=== PATIENT | female | born 1955 | race Caucasian/White ===

== ENCOUNTER 2017-02-27 06:58 | Day surgery (SDC) | payer MEDICAID ==
[2017-02-27] MEDS ORDERED: Sodium Chloride 0.9% 1,000 ML IV SCH (07:30)
[2017-02-27] MEDS ORDERED: fentaNYL 100 MCG/2 ML SDV ONE (08:07)
[2017-02-27] MEDS ORDERED: Midazolam 1 MG/ML 2 ML SDV ONE (08:08)
[2017-02-27] MEDS ORDERED: Propofol 200 MG/20 ML SDV ONE (08:08)
[2017-02-27 09:43] VITALS: BP 122/73
--- NOTE | 2017-02-27 13:09 | OR ---
DATE OF PROCEDURE: 02/27/2017 PROCEDURE: Colonoscopy. FINDINGS: 1. Mild inflammation of the cecum in proximity to ileocecal valve (biopsied using cold biopsy forceps). 2. Sigmoid colon polyp #1, approximately 8 mm polyp, completely removed using hot snare. 3. Sigmoid colon polyp #2, completely removed using cold biopsy forceps. 4. Rectal polyp #1, completely removed using cold biopsy forceps. COMPLICATIONS: None. SPORTS MANAGEMENT INTERNSHIP: None. PREOPERATIVE DIAGNOSIS: History of colon polyps. POSTOPERATIVE DIAGNOSIS: History of colon polyps. RISKS: Risks, benefits, alternatives, and limitations including, but not limited to infection, bleeding, and perforation were explained to the patient, who wished to proceed. PROCEDURE IN DETAIL: The patient was placed in left lateral decubitus position. Digital rectal exam was performed without abnormality. The scope was introduced and advanced atraumatically to the ileocecal valve. The scope was brought back to the ascending, transverse, descending colon, and retroflexed. The aforementioned polyps were all completely removed in the procedure described. No evidence of old or new blood. No diverticulosis. No abnormalities on retroflex. The patient did have small external hemorrhoid, which was benign in appearance. The patient tolerated the procedure well. Ryland Stephen MD /[id number]
== END 2017-02-27 09:57 | disposition home or self-care (01) ==
LOC: JP.SDS 06:58
PROVIDERS: ATTEND Surgery
DX: Z12.11 Encounter for screening for malignant neoplasm of colon (principal); D12.5 Benign neoplasm of sigmoid colon; D12.0 Benign neoplasm of cecum; K63.5 Polyp of colon; K62.1 Rectal polyp; Z86.010 Personal history of colon polyps; K64.4 Residual hemorrhoidal skin tags; I10 Essential (primary) hypertension; Z88.1 Allergy status to other antibiotic agents; Z88.8 Allergy status to other drugs, medicaments and biological substances; F17.200 Nicotine dependence, unspecified, uncomplicated
CPT/HCPCS: 45380; 45385; J2250; J2704; J3010; J7040; 88305

== ENCOUNTER 2018-01-26 07:34 | Inpatient (IN) | payer MEDICAID ==
[~2018-01-26 07:34] MED LIST: Midazolam 1 MG/ML 2 ML SDV ONE; Propofol 200 MG/20 ML SDV ONE; fentaNYL 100 MCG/2 ML SDV ONE
[2018-01-26] MEDS ORDERED: Acetaminophen 500 MG Tab PO ONE (08:00)
[2018-01-26] MEDS ORDERED: Scopolamine 1.5 MG Transdermal Patch TOP SCH (08:00)
[2018-01-26] MEDS ORDERED: Lactated Ringers 1,000 ML IV SCH ×2 (08:00→11:30)
[2018-01-26] MEDS ORDERED: Gabapentin 300 MG Cap PO ONE (08:00)
[2018-01-26] MEDS ORDERED: Gentamicin 40 MG/ML 2 ML Vial ONE (08:03)
[2018-01-26] MEDS ORDERED: Povidone-Iodine 10% Soln 118.25 ML Bottle ONE (08:03)
[2018-01-26] MEDS: Clindamycin Phosphate 900 MG in Sodium Chloride 0.9% 100 ML IV ONE ×2 (08:24→10:08)
[2018-01-26] MEDS ORDERED: Ketamine 500 MG/5 ML MDV IV SCH (09:00)
[2018-01-26] MEDS ORDERED: Ropivacaine 49.25 ML, Ketorolac 30 MG, EPINEPHrine 0.5 MG, cloNIDine 80 MCG, Sodium Chl... INJECT ONE ×5 (09:00)
[2018-01-26] MEDS ORDERED: TRANEXAMIC ACID IV SCH (09:00)
[2018-01-26] MEDS ORDERED: SODIUM CHLORIDE 0.9% IV SCH (09:00)
[2018-01-26] MEDS ORDERED: Propofol 200 MG/20 ML SDV ONE ×2 (10:11→10:44)
[2018-01-26] MEDS ORDERED: fentaNYL 100 MCG/2 ML SDV ONE (10:32)
[2018-01-26] MEDS ORDERED: Lactated Ringers 1,000 ML ONE (10:50)
[2018-01-26] MEDS ORDERED: Sennosides 8.6 MG Tab PO PRN (11:23)
[2018-01-26] MEDS ORDERED: Bisacodyl 5 MG Tab PO PRN (11:23)
[2018-01-26] MEDS ORDERED: traMADol 50 MG Tab PO PRN (11:23)
[2018-01-26] MEDS ORDERED: Docusate Sodium 100 MG Cap PO PRN (11:23)
[2018-01-26] MEDS ORDERED: Morphine 2 MG/ML Syringe IVPUSH PRN (11:23)
[2018-01-26] MEDS ORDERED: diphenhydrAMINE 50 MG/ML SDV IVPUSH PRN (11:23)
[2018-01-26] MEDS ORDERED: Ondansetron 4 MG/2 ML SDV IVPUSH PRN (11:23)
[2018-01-26] MEDS ORDERED: Magnesium Hydroxide 400 MG/5 ML Susp 30 ML Cup PO PRN (11:23)
[2018-01-26] MEDS ORDERED: Naloxone 0.4 MG/ML SDV IVPUSH PRN (11:23)
[2018-01-26] MEDS ORDERED: Zolpidem 5 MG Tab PO PRN (11:23)
[2018-01-26] MEDS ORDERED: Aluminum Hydroxide/Magnesium Hydroxide/Simethicone Susp 30 ML Cup PO PRN (11:23)
[2018-01-26] MEDS ORDERED: hydrOXYzine HCl 100 MG/2 ML SDV IM ONE (11:39)
[2018-01-26] MEDS ORDERED: Ketorolac 30 MG/ML SDV IVPUSH PRN (12:00)
[2018-01-26] MEDS: VERIFY SCOPOLAMINE PATCH TOP SCH (12:28)
--- NOTE | 2018-01-26 13:34 | PCM.CONS ---
H&P History of Present Illness - General Date of Service: 01/26/18 Admit Problem/Dx: Source of Information: Patient, Provider, RN Notes Reviewed History Limitations: Reports: No Limitations - History of Present Illness Initial Comments - Free Text/Narative: Ms. Alaniz is a 62-year-old woman who I been asked to see by Dr. Dariel Stockton for hospice consult and assistance in postoperative medical management after she underwent a right total knee arthroplasty earlier today. She reports that she is experiencing some pain in the knee but otherwise has felt relatively well since surgery, denies any nausea vomiting, chest pain, or shortness of breath. Right Knee Pain Score (Numeric/FACES): 10 - Related Data Allergies/Adverse Reactions: Allergies Allergy/AdvReac Type Severity Reaction Status Date / Time ceftriaxone [From Rocephin] Allergy Rash Verified 12/09/17 09:38 doxycycline Allergy Hives Verified 12/09/17 09:38 Home Medications: Home Meds Lisinopril 40 mg PO DAILY 01/05/17 [History] Terazosin [Hytrin] 5 mg PO DAILY 01/05/17 [History] Varenicline Tartrate [Chantix] 1 each PO BID 02/11/17 [History] Levothyroxine Sodium [Synthroid] 112 mcg PO DAILY 07/20/17 [History] Cetirizine [ZyrTEC] 10 mg PO DAILY 10/29/17 [History] Metoprolol Succinate [Toprol XL 50mg] 50 mg PO DAILY 10/29/17 [History] Cholecalciferol (Vitamin D3) [Vitamin D3] 2,000 units PO DAILY 11/25/17 [History ] Diclofenac Sodium [Voltaren] 75 mg PO BID 11/25/17 [History] Past Medical History HEENT History: Reports: Allergic Rhinitis Cardiovascular History: Reports: Blood Clots/VTE/DVT, Hypertension Respiratory History: Reports: Other (See Below) Other Respiratory History: "walking pneumonia yearly" Gastrointestinal History: Reports: Colon Polyp 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: Endometriosis, Musculoskeletal History: Reports: Other (See Below) Other Musculoskeletal History: Right Knee Pain Neurological History: Reports: Vertigo Psychiatric History: Reports: Anxiety Endocrine/Metabolic History: Reports: Hypothyroidism - Infectious Disease History Infectious Disease History: Reports: Chicken Pox - Past Surgical History HEENT Surgical History: Reports: Oral Surgery GI Surgical History: Reports: Appendectomy, Colonoscopy, Hernia, Abdominal, Hernia Repair/Other Female Surgical History: Reports: Hysterectomy, Oophorectomy Other Female Surgeries/Procedures: still has right overy Endocrine Surgical History: Reports: Thyroidectomy Musculoskeletal Surgical History: Reports: Arthroscopic Knee Other Musculoskeletal Surgeries/Procedures:: right arthroscopy of knee, cortisone injections of both knees Social & Family History - Family History Family Medical History: Noncontributory Oncologic: Reports: Metastatic, Other (See Below) Other Oncologic Family History: father of malignant melanoma - Tobacco Use Smoking Status *Q: Former Smoker Years of Tobacco use: 40 Packs/Tins Daily: 1 Used Tobacco, but Quit: No Second Hand Smoke Exposure: No - Caffeine Use Caffeine Use: Reports: Coffee Other Caffeine Use: lots of coffee - Recreational Drug Use Recreational Drug Use: No H&P Review of Systems - Review of Systems: Review Of Systems: See Below Pulmonary: Reports: No Symptoms Cardiovascular: Reports: No Symptoms Gastrointestinal: Reports: No Symptoms Musculoskeletal: Reports: Joint Pain Exam - Exam Exam: See Below - Vital Signs Vital Signs: Last Vital Signs Temp 95.9 F 01/26/18 12:55 Pulse 56 L 01/26/18 12:55 Resp 16 01/26/18 12:55 BP 108/65 01/26/18 12:55 Pulse Ox 93 L 01/26/18 13:07 Weight: 178 lb 7 oz - Exam General: Alert, Oriented, Cooperative, Mild Distress Neck: Supple, Trachea Midline, +2 Carotid Pulse wo Bruit Lungs: Clear to Auscultation, Normal Respiratory Effort Cardiovascular: Regular Rate, Regular Rhythm, Normal S1, Normal S2 GI/Abdominal Exam: Soft, Non-Tender, No Organomegaly, No Distention Extremities: No Pedal Edema, Normal Capillary Refill Skin: Warm, Dry - Patient Data Lab Results Last 24 hrs: Laboratory Results - last 24 hr 01/26/18 Range/Units 08:54 Blood Type O POSITIVE Gel Antibody Screen Negative Consult PN Assessment/Plan Procedures: Procedures BLOOD TYPING SEROLOGIC ABO (01/18/18) BLOOD TYPING SEROLOGIC RH(D) (01/18/18) CARDIOVASCULAR STRESS TEST (12/09/17) COLONOSCOPY AND BIOPSY (02/27/17) COLONOSCOPY W/LESION REMOVAL (02/27/17) CULTURE OTHR SPECIMN AEROBIC (01/18/18) DRAIN/INJ JOINT/BURSA W/O US (06/29/17) HOT OR COLD PACKS THERAPY (08/10/17) HT MUSCLE IMAGE SPECT MULT (12/09/17) MANUAL THERAPY 1/> REGIONS (08/10/17) MRI JNT OF LWR EXTRE W/O DYE (11/25/17) MRI LUMBAR SPINE W/O DYE (01/13/17) OFFICE/OUTPATIENT VISIT EST (12/10/17) OFFICE/OUTPATIENT VISIT EST (06/29/17) OFFICE/OUTPATIENT VISIT NEW (01/05/17) POLYSOM 6/> YRS 4/> JINA (11/30/17) PT EVAL LOW COMPLEX 20 MIN (07/27/17) RBC ANTIBODY SCREEN (01/18/18) ROUTINE VENIPUNCTURE (01/18/18) X-RAY EXAM HIP UNI 2-3 VIEWS (01/05/17) X-RAY EXAM KNEE 4 OR MORE (10/29/17) X-RAY EXAM L-2 SPINE 4/>VWS (01/05/17) X-RAY EXAM OF KNEE 3 (01/19/17) X-RAY EXAM OF SHOULDER (07/20/17) Problem List Initiated/Reviewed/Updated: Yes Plan: ASSESSMENT AND RECOMMENDATIONS STATUS POST RIGHT TOTAL KNEE ARTHROPLASTY-stable and doing well during the initial postoperative period -Postoperative care per Dr. Stockton HYPERTENSION -Continue outpatient medical regimen HYPOTHYROIDISM -Continue outpatient thyroid replacement medication NICOTINE DEPENDENCE-quit smoking 6 weeks prior to admission Requesting Provider: DEA Date Consult Requested: 01/26/18 Reason for Consult: Postoperative medical management Patient History Reviewed: Yes
--- NOTE | 2018-01-26 14:02 | CR ---
Postop right TKA. Negative for post surgical purposes.
[2018-01-26] MEDS: Acetaminophen 1,000 MG in Premix Bag 1 BAG IV SCH ×2 (14:51→20:42)
--- NOTE | 2018-01-26 16:43 | OR ---
DATE OF PROCEDURE: 01/26/2018 PREOPERATIVE DIAGNOSIS: Right knee primary osteoarthritis. POSTOPERATIVE DIAGNOSIS: Right knee primary osteoarthritis. PROCEDURE: Right knee total knee arthroplasty. ANESTHESIA: Spinal plus conscious sedation. FLUIDS: Lactated Ringer solution. ESTIMATED BLOOD LOSS: 50 mL. COMPLICATIONS: None. SPECIMEN: None. DISCHARGE DISPOSITION: Stable to PACU. INSTRUMENTATION: DePuy Attune size 5 femur; size 5 tibial base plate; size 5, 6-mm polyethylene fixed bearing cruciate-retaining tibial insert; 32-mm domed patella. INDICATIONS FOR THE PROCEDURE: The patient was seen preoperatively in the clinic. She had failed nonoperative treatment. Preoperative imaging confirmed the above-mentioned diagnosis. Risks and benefits of the procedure were explained to the patient. Informed consent was obtained. DESCRIPTION OF PROCEDURE: The patient was seen preoperatively by myself and the anesthesia staff in the preop holding area where the operative site was marked. She was brought to the operative suite by the anesthesia staff where spinal anesthesia plus conscious sedation was administered. A well-padded tourniquet was placed on the right thigh. All extremities were found to be well padded. A sterile Barnett catheter was placed. The right lower extremity was then prepped and draped in a sterile manner. Time-out was called identifying the correct patient, the correct procedure, the correct site, and that the antibiotics had begun within the appropriate period of time. Right lower extremity was exsanguinated. Tourniquet was raised to 300 mmHg for 33 minutes and let down during cementing. A midline incision was made 3 fingerbreadths proximal to the patella down to the level of the tibial tubercle and carried down to the deep fascia. Medial parapatellar arthrotomy was then made. The medial tibia was then exposed using Bovie electrocautery. The infrapatellar fat pad was removed, and full synovectomy was performed. The patella was then everted. The knee was flexed. Some soft tissue was removed from the patella, and then a freehand cut was made over the patella. This measured 32, and 32-mm trial was then drilled and placed. I then reamed the distal femur and then used the intramedullary guide at 9-mm distal cut, 5-mm valgus, pinned this in place, removed the guide, made my distal cut and then removed my guide. I then used a posterior condylar guide in 3-degree valgus, then placed 2 pins, then inserted my chamfer block, and then made my anterior, posterior, and chamfer cuts while protecting the medial and lateral collateral ligaments with sharp Hohmann. We then removed the pins, then removed the medial lateral meniscus, anteriorized the tibia with a blunt Hohmann, then protected the collaterals with sharp Hohmann, and then using the extramedullary tibial guide at 5-degree posterior slope, we pinned this in place. I then made my proximal tibial cut. We then moved to the proximal tibia that had been cut, and then using a lamina charging board operator, removed our posterior osteophytes and the remainder of the menisci. We then anteriorized the tibia again and then used the tower over a 5 tibial base plate and then reamed and tamped, left this in place, and then placed our femoral trial. I then drilled the lugs for the femoral trial and then inserted a size 5, 5-mm polyethylene trial. This provided good stability throughout range of motion. We then removed all the components, copiously irrigated with saline, and then placed all of our components and cemented them in place. Except, we used a size 5, 5-mm polyethylene tibial insert trial and let this set in extension. The tourniquet was taken down at 33 minutes. After the cement had dried, removed any extra cement, and then I trialed with a size 5, 6 mm, which provided a slightly better stability. We then inserted our size 5, 6-mm polyethylene and then ranged it. This provided good stability throughout range of motion. We then irrigated again. We applied a periarticular injection and then closed our parapatellar arthrotomy with two #5 Ethibond interrupted sutures as well as #1 Stratafix in a running manner followed by irrigation followed by #2 Stratafix in a running manner subcutaneously followed by skin coty, followed by sterile dressing. The patient was then transferred to hospital bed and taken to the PACU in stable condition. Nehemiah Stockton DO /[id number]
[2018-01-26] MEDS: Acetaminophen/oxyCODONE 325-5 MG Tab PO PRN (20:39)
[2018-01-27] MEDS: Acetaminophen 1,000 MG in Premix Bag 1 BAG IV SCH ×2 (02:18→08:03)
[2018-01-27] MEDS: Acetaminophen/oxyCODONE 325-5 MG Tab PO PRN ×3 (02:34→11:57)
--- NOTE | 2018-01-27 07:06 | PCM.DCSUM1 ---
Discharge Summary - Hospital Course Brief History: r tka 01/26 - Discharge Data Discharge Date: 01/27/18 Discharge Disposition: Home, Self-Care 01 Condition: Good - Patient Summary/Data Operative Procedure(s) Performed: r tka Complications: none Consults: Consultations 01/26/18 11:24 Consult to Physician [CONS] Routine Consulting Provider: Arnaud Wells Call Completed to Consulting Physician: Yes OT Evaluation and Treatment [CONS] Routine Please Evaluate and Treat. OT Reason for Consult: Strengthening This query below is only for informational purposes and is not editable. PT Evaluation and Treatment [CONS] Routine Please Evaluate and Treat. PT Reason for Consult: Strengthening This query below is only for informational purposes and is not editable. Respiratory Care Assess and Treatment [CONS] Routine Comment: Physician Instructions: Post-op Pneumonia Prevention - Patient Instructions Diet: Usual Diet as Tolerated Activity: Apply Ice, As Tolerated, No Strenuous Activities Driving: Do Not Drive Showering/Bathing: May Shower Wound/Incision Care: Keep Operative Site/Wound Site Clean and Dry, Change Dressing Daily Notify Provider of: Fever, Increased Pain, Swelling and Redness, Drainage, Nausea and/or Vomiting - Discharge Plan Prescriptions/Med Rec: Acetaminophen/oxyCODONE [Percocet 325-5 MG] 1 tab PO Q6HR #120 tablet Aspirin [Ecotrin] 325 mg PO DAILY #30 tab.ec Home Medications: Home Meds Lisinopril 40 mg PO DAILY 01/05/17 [History] Terazosin [Hytrin] 5 mg PO DAILY 01/05/17 [History] Varenicline Tartrate [Chantix] 1 each PO BID 02/11/17 [History] Levothyroxine Sodium [Synthroid] 112 mcg PO DAILY 07/20/17 [History] Cetirizine [ZyrTEC] 10 mg PO DAILY 10/29/17 [History] Metoprolol Succinate [Toprol XL 50mg] 50 mg PO DAILY 10/29/17 [History] Cholecalciferol (Vitamin D3) [Vitamin D3] 2,000 units PO DAILY 11/25/17 [History ] Diclofenac Sodium [Voltaren] 75 mg PO BID 11/25/17 [History] Acetaminophen/oxyCODONE [Percocet 325-5 MG] 1 tab PO Q6HR #120 tablet 01/27/18 [ Rx] Aspirin [Ecotrin] 325 mg PO DAILY #30 tab.ec 01/27/18 [Rx] Patient Handouts: Total Knee Replacement, Care After - Discharge Summary/Plan Comment DC Time >30 min.: Yes - General Info Date of Service: 01/27/18 Functional Status: Reports: Pain Controlled, Tolerating Diet, Ambulating - Review of Systems General: Reports: No Symptoms HEENT: Reports: No Symptoms Pulmonary: Reports: No Symptoms Cardiovascular: Reports: No Symptoms Gastrointestinal: Reports: No Symptoms Genitourinary: Reports: No Symptoms Musculoskeletal: Reports: Leg Pain, Joint Pain Skin: Reports: No Symptoms Neurological: Reports: No Symptoms Psychiatric: Reports: No Symptoms - Patient Data Vitals - Most Recent: Last Vital Signs Temp 97.5 F 01/27/18 02:00 Pulse 59 L 01/27/18 02:00 Resp 15 01/27/18 02:00 BP 98/59 L 01/27/18 02:00 Pulse Ox 93 L 01/27/18 05:50 Weight - Most Recent: 178 lb 7 oz I&O - Last 24 hours: Intake & Output 01/26/18 01/27/18 01/27/18 22:59 06:59 14:59 Intake Total 1469 2014 Output Total 330 420 Balance 1139 1595 Lab Results - Last 24 hrs: Laboratory Results - last 24 hr 01/26/18 01/27/18 01/27/18 Range/Units 08:54 05:44 05:44 WBC 10.1 (4.5-11.0) K/uL RBC 3.74 (3.30-5.50) M/uL Hgb 11.0 L (12.0-15.0) g/dL Hct 34.1 L (36.0-48.0) % MCV 91 (80-98) fL MCH 29 (27-31) pg MCHC 32 (32-36) % Plt Count 164 (150-400) K/uL Neut % (Auto) 77 H (36-66) % Lymph % (Auto) 12 L (24-44) % [place] % (Auto) 10 H (2-6) % Eos % (Auto) 1 L (2-4) % Baso % (Auto) 0 (0-1) % Sodium 139 L (140-148) mmol/L Potassium 3.6 (3.6-5.2) mmol/L Chloride 106 (100-108) mmol/L Carbon Dioxide 24 (21-32) mmol/L Anion Gap 12.6 (5.0-14.0) mmol/L BUN 12 (7-18) mg/dL Creatinine 0.7 (0.6-1.0) mg/dL Est Cr Clr Drug Dosing 59.09 mL/min Estimated GFR (MDRD) > 60 (>60) Glucose 112 H (74-106) mg/dL Calcium 7.5 L (8.5-10.1) mg/dL Total Bilirubin 0.8 (0.2-1.0) mg/dL AST 16 (15-37) U/L ALT 21 (12-78) U/L Alkaline Phosphatase 69 (46-116) U/L Total Protein 5.6 L (6.4-8.2) g/dL Albumin 2.6 L (3.4-5.0) g/dL Globulin 3.0 (2.3-3.5) g/dL Albumin/Globulin Ratio 0.9 L (1.2-2.2) Blood Type O POSITIVE Gel Antibody Screen Negative Med Orders - Current: Current Medications Al Hydroxide/Mg Hydroxide (Mag-Al Plus) 30 ml PO Q4H PRN PRN Reason: Constipation Aspirin (Ecotrin) 325 mg PO DAILY LYDIA Bisacodyl (Dulcolax) 10 mg PO DAILY PRN PRN Reason: Constipation Cetirizine HCl (Zyrtec) 10 mg PO DAILY LYDIA Diphenhydramine HCl (Benadryl) 25 mg IVPUSH Q4H PRN PRN Reason: Itching Docusate Sodium (Colace) 100 mg PO BID PRN PRN Reason: Constipation Acetaminophen 1,000 mg/ Premix 100 mls @ 400 mls/hr IV Q6H LYDIA Stop: 01/27/18 08:44 Last Admin: 01/27/18 02:18 Dose: 400 mls/hr Ketorolac Tromethamine (Toradol) 30 mg IVPUSH Q8H PRN PRN Reason: Pain Last Admin: 01/26/18 12:22 Dose: 30 mg Levothyroxine Sodium (Levothyroxine) 112 mcg PO DAILY@0730 [facility] Lisinopril (Prinivil) 40 mg PO DAILY LYDIA Magnesium Hydroxide (Milk Of Magnesia) 30 ml PO BID PRN PRN Reason: Constipation Metoprolol Succinate (Toprol Xl) 50 mg PO DAILY [facility] Morphine Sulfate (Morphine) 2 mg IVPUSH Q2H PRN PRN Reason: Pain Last Admin: 01/26/18 12:53 Dose: 2 mg Naloxone HCl (Narcan) 0.1 mg IVPUSH ONETIME PRN PRN Reason: Oversedation Verify Scopolamine (Patch) 0 each TOP DAILY [facility] Last Admin: 01/26/18 12:28 Dose: Not Given Ondansetron HCl (Zofran) 8 mg IVPUSH Q4H PRN PRN Reason: Nausea/Vomiting Oxycodone/Acetaminophen (Percocet 325-5 Mg) 2 tab PO Q4H PRN PRN Reason: Pain Last Admin: 01/27/18 02:34 Dose: 2 tab Scopolamine (Transderm-Scop) 1.5 mg TOP Q72H [facility] Stop: 01/28/18 10:00 Last Admin: 01/26/18 08:24 Dose: 1.5 mg Senna (Senna) 8.6 mg PO BID PRN PRN Reason: Constipation Sodium Chloride (Saline Flush) 10 ml FLUSH DAILY [facility] Terazosin HCl (Hytrin) 5 mg PO DAILY [facility] Tramadol HCl (Ultram) 100 mg PO Q6H PRN PRN Reason: Pain Last Admin: 01/26/18 13:50 Dose: 100 mg Varenicline (Chantix) 1 mg PO BID [facility] Last Admin: 01/26/18 20:43 Dose: 1 mg Zolpidem Tartrate (Ambien) 5 mg PO BEDTIME PRN PRN Reason: Sleep Discontinued Medications Acetaminophen (Tylenol Extra Strength) 1,000 mg PO ONETIME ONE Stop: 01/26/18 08:01 Last Admin: 01/26/18 08:20 Dose: 1,000 mg Ropivacaine 49.25 ml/Ketorolac Tromethamine 30 mg/Epinephrine HCl 0.5 mg/ Clonidine HCl 80 mcg/ Sodium Chloride 48.45 ml 0 ml INJECT ONETIME ONE Stop: 01/26/18 09:01 Last Admin: 01/26/18 10:09 Dose: 100 ml Fentanyl (Sublimaze) Confirm Administered Dose 100 mcg .ROUTE .STK-MED ONE Stop: 01/26/18 07:21 Fentanyl (Sublimaze) Confirm Administered Dose 100 mcg .ROUTE .STK-MED ONE Stop: 01/26/18 10:33 Gabapentin (Neurontin) 300 mg PO ONETIME ONE Stop: 01/26/18 08:01 Last Admin: 01/26/18 08:20 Dose: 300 mg Gentamicin Sulfate (Gentamicin) Confirm Administered Dose 240 mg .ROUTE .STK- MED ONE Stop: 01/26/18 08:04 Last Admin: 01/26/18 10:17 Dose: 240 mg Hydroxyzine HCl (Vistaril) 100 mg IM ONETIME ONE Stop: 01/26/18 11:40 Last Admin: 01/26/18 11:45 Dose: 100 mg Clindamycin Phosphate 900 mg/ (Sodium Chloride) 106 mls @ 200 mls/hr IV ONETIME ONE Stop: 01/26/18 08:31 Last Admin: 01/26/18 10:08 Dose: 200 mls/hr Lactated Ringer's (Ringers, Lactated) 1,000 mls @ 100 mls/hr IV ASDIRECTED LYDIA Last Admin: 01/26/18 08:25 Dose: 100 mls/hr Lactated Ringer's (Ringers, Lactated) Confirm Administered Dose 1,000 mls @ as directed .ROUTE .STK-MED ONE Stop: 01/26/18 10:51 Lactated Ringer's (Ringers, Lactated) 1,000 mls @ 100 mls/hr IV ASDIRECTED LYDIA Ketamine HCl (Ketalar) 23 mg IV ASDIRECTED LYDIA Midazolam HCl (Versed 1 Mg/Ml) Confirm Administered Dose 2 mg .ROUTE .STK-MED ONE Stop: 01/26/18 07:22 Povidone Iodine (Betadine 10% Soln) Confirm Administered Dose 1 ml .ROUTE .STK- MED ONE Stop: 01/26/18 08:04 Last Admin: 01/26/18 10:17 Dose: 18 ml Propofol (Diprivan 20 Ml) Confirm Administered Dose 200 mg .ROUTE .STK-MED ONE Stop: 01/26/18 07:22 Propofol (Diprivan 20 Ml) Confirm Administered Dose 200 mg .ROUTE .STK-MED ONE Stop: 01/26/18 10:12 Propofol (Diprivan 20 Ml) Confirm Administered Dose 200 mg .ROUTE .STK-MED ONE Stop: 01/26/18 10:45 - Exam General: Reports: Alert, Oriented HEENT: Reports: Pupils Equal, Pupils Reactive, EOMI, Mucous Membr. Moist/[place] Neck: Reports: Supple, Trachea Midline Lungs: Reports: Normal Respiratory Effort Extremities: Joint Swelling, Limited Range of Motion, Increased Warmth Skin: Reports: Warm, Dry, Intact Wound/Incisions: Reports: Healing Well, Dressing Dry and Intact, No Drainage Neurological: Reports: No New Focal Deficit Psy/Mental Status: Reports: Alert, Normal Affect, Normal Mood Discharge Operative/Procedures - Procedures Performed Operations: r tka
[2018-01-27] MEDS ORDERED: Levothyroxine 112 MCG Tab PO SCH (07:30)
[2018-01-27] MEDS ORDERED: Metoprolol Succinate 50 MG Tab.ER PO SCH (09:00)
[2018-01-27] MEDS ORDERED: Sodium Chloride 0.9% 10 ML Syringe FLUSH SCH (09:00)
[2018-01-27] MEDS ORDERED: Cetirizine 10 MG Tab PO SCH (09:00)
[2018-01-27] MEDS ORDERED: Aspirin 325 MG Tab.EC PO SCH (09:00)
[2018-01-27] MEDS ORDERED: Terazosin 5 MG Cap PO SCH (09:00)
[2018-01-27] MEDS ORDERED: Lisinopril 20 MG Tab PO SCH (09:00)
[2018-01-27] MEDS: VERIFY SCOPOLAMINE PATCH TOP SCH (11:47)
[2018-01-27 14:45] VITALS: BP 109/59
== END 2018-01-27 15:00 | disposition home or self-care (01) | DRG 470 ==
LOC: JP.SDS 07:34 → JP.MS 11:24
PROVIDERS: ADMIT Orthopaedic Surgery; ATTEND Orthopaedic Surgery
PROC: 0SRC0J9 Replacement of Right Knee Joint with Synthetic Substitute, Cemented, Open Approach (ICD-10-PCS; principal; 2018-01-26)
DX: M17.11 Unilateral primary osteoarthritis, right knee (principal); I10 Essential (primary) hypertension; Z86.718 Personal history of other venous thrombosis and embolism; E89.0 Postprocedural hypothyroidism; F17.210 Nicotine dependence, cigarettes, uncomplicated; K21.9 Gastro-esophageal reflux disease without esophagitis; E55.9 Vitamin D deficiency, unspecified; F41.9 Anxiety disorder, unspecified; Z88.1 Allergy status to other antibiotic agents
CPT/HCPCS: 36415; 73560-26-RT; 73560-RT; 80053; 85025; 86850; 86900; 86901; 94762; 97110-GP; 97116-GP; 97161-GP; 97165-GO; 97530-GP; A9270-GY; C1713; C1776; J0131; J0171; J0735; J1580; J1885; J2250; J2270; J2704; J2795; J3010; J3410; J7030; J7050; J7120; S0077

== ENCOUNTER 2018-12-16 06:50 | Day surgery (SDC) | payer MEDICAID ==
[2018-12-16] MEDS ORDERED: fentaNYL 100 MCG/2 ML SDV ONE (07:24)
[2018-12-16] MEDS ORDERED: Midazolam 1 MG/ML 2 ML SDV ONE (07:24)
[2018-12-16] MEDS ORDERED: Propofol 200 MG/20 ML SDV ONE (07:24)
[2018-12-16] MEDS ORDERED: Lactated Ringers 1,000 ML IV SCH (07:45)
[2018-12-16] MEDS ORDERED: Clindamycin Phosphate 900 MG in Sodium Chloride 0.9% 100 ML IV ONE (08:00)
[2018-12-16 10:39] VITALS: BP 116/72
--- NOTE | 2018-12-16 14:03 | OR ---
DATE OF PROCEDURE: 12/16/2018 SURGEON: Ryland Stephen MD PROCEDURE: Colonoscopy. FINDINGS: Sigmoid colon polyp, approximately 5 mm, completely removed using cold biopsy forceps. COMPLICATIONS: None. COMMERCIAL TECHNICIAN: None. ANESTHESIA: MAC. PREOPERATIVE DIAGNOSIS: History of colon polyps/screening. POSTOPERATIVE DIAGNOSIS: History of colon polyps/screening. RISKS: Risks, benefits, alternatives, and limitations including, but not limited to infection, bleeding, and perforation were explained to the patient, who wished to proceed. PROCEDURE IN DETAIL: The patient was placed in left lateral decubitus position. Digital rectal exam was performed without abnormality. The scope was introduced and advanced atraumatically to the ileocecal valve. The scope was brought back through the ascending, transverse, descending colon, and retroflexed. The aforementioned polyp was identified and completely removed. No evidence of old or new blood. No mass lesion. No diverticulosis. No abnormalities on retroflex. The patient tolerated the procedure well. Ryland Stephen MD /[id number]
== END 2018-12-16 10:45 | disposition home or self-care (01) ==
LOC: JP.SDS 06:50
PROVIDERS: ATTEND Surgery
DX: K63.5 Polyp of colon (principal); I10 Essential (primary) hypertension; F17.200 Nicotine dependence, unspecified, uncomplicated; Z88.1 Allergy status to other antibiotic agents
CPT/HCPCS: 45380; J2250; J2704; J3010; J3490; J7030; J7120; 88305

== ENCOUNTER 2019-03-14 15:10 | Emergency (ER) | payer MEDICAID ==
[2019-03-14 15:24] VITALS: BP 154/92; PULSE 104
[2019-03-14] MEDS ORDERED: Lidocaine 1% with EPINEPHrine 1:100,000 50 ML MDV INFILT ONE (15:40)
[2019-03-14] MEDS ORDERED: Bacitracin Oint 1 GM U/D Packet TOP ONE (15:40)
--- NOTE | 2019-03-14 16:17 | EDM.PDOC ---
ED HPI GENERAL MEDICAL PROBLEM - General Chief Complaint: Laceration Stated Complaint: right cut on pointer finger Time Seen by Provider: 03/14/19 15:18 Source of Information: Reports: Patient History Limitations: Reports: No Limitations - History of Present Illness INITIAL COMMENTS - FREE TEXT/NARRATIVE: 63 yo female presents to ER with laceration to the MP joint of her right 2nd digit. she was washing dishes and a glass broke. full ROM of hand and fingers. up to date on tetanus Right Finger-Index Pain Score (Numeric/FACES): 4 - Related Data Allergies Allergy/AdvReac Type Severity Reaction Status Date / Time ceftriaxone [From Rocephin] Allergy Rash Verified 12/16/18 07:26 doxycycline Allergy Hives Verified 12/16/18 07:26 Home Meds: Home Meds Lisinopril 40 mg PO DAILY 01/05/17 [History] Terazosin [Hytrin] 5 mg PO DAILY 01/05/17 [History] Levothyroxine Sodium [Synthroid] 100 mcg PO DAILY 07/20/17 [History] Cetirizine [ZyrTEC] 10 mg PO DAILY 10/29/17 [History] Metoprolol Succinate [Toprol XL 50mg] 50 mg PO DAILY 10/29/17 [History] Cholecalciferol (Vitamin D3) [Vitamin D3] 2,000 units PO DAILY 11/25/17 [History ] Sertraline HCl 50 mg PO DAILY 10/05/18 [History] Aspirin [Lo-Dose Aspirin EC] 81 mg PO DAILY 12/14/18 [History] Diclofenac Sodium [Voltaren] 1 applic TOP Q8HR PRN 12/14/18 [History] LORazepam 0.5 mg PO DAILY PRN 12/14/18 [History] Nicotine [Nicotrol] 10 mg IH ASDIRECTED PRN 12/14/18 [History] Varenicline [Chantix] 1 mg PO BIDPC 12/14/18 [History] Past Medical History HEENT History: Reports: Allergic Rhinitis Cardiovascular History: Reports: Blood Clots/VTE/DVT, Hypertension Respiratory History: Reports: Bronchitis, Recurrent, Pneumonia, Recurrent Other Respiratory History: "walking pneumonia yearly" Gastrointestinal History: Reports: Colon Polyp Genitourinary History: Reports: Renal Calculus [employer]OUND[employer] History: Reports: Endometriosis, Musculoskeletal History: Reports: Other (See Below) Other Musculoskeletal History: s/p RTKA 01/26/18. L knee pain Neurological History: Reports: Head Trauma, Vertigo Psychiatric History: Reports: Anxiety Endocrine/Metabolic History: Reports: Hypothyroidism Hematologic History: Reports: None Immunologic History: Reports: None Oncologic (Cancer) History: Reports: None Dermatologic History: Reports: None - Infectious Disease History Infectious Disease History: Reports: Chicken Pox, Measles, Mumps - Past Surgical History Head Surgeries/Procedures: Reports: None HEENT Surgical History: Reports: Oral Surgery Cardiovascular Surgical History: Reports: None Respiratory Surgical History: Reports: None GI Surgical History: Reports: Appendectomy, Colonoscopy, Hernia, Abdominal, Hernia Repair/Other Female Surgical History: Reports: Hysterectomy, Oophorectomy Other Female Surgeries/Procedures: still has right overy Endocrine Surgical History: Reports: Thyroidectomy Neurological Surgical History: Reports: None Musculoskeletal Surgical History: Reports: Arthroscopic Knee Other Musculoskeletal Surgeries/Procedures:: right arthroscopy of knee, cortisone injections of both knees Social & Family History - Family History Family Medical History: Noncontributory Oncologic: Reports: Metastatic, Other (See Below) Other Oncologic Family History: father of malignant melanoma - Tobacco Use Smoking Status *Q: Never Smoker Second Hand Smoke Exposure: No - Caffeine Use Caffeine Use: Reports: Tea Other Caffeine Use: lots of coffee - Recreational Drug Use Recreational Drug Use: No ED ROS GENERAL - Review of Systems Review Of Systems: See Below Constitutional: Denies: Fever, Chills Respiratory: Denies: Shortness of Breath, Wheezing Cardiovascular: Denies: Chest Pain ED EXAM, SKIN/RASH Exam: See Below Text/Narrative:: exam limited to right hand. Exam Limited By: No Limitations General Appearance: Alert, WD/WN, No Apparent Distress Respiratory/Chest: No Respiratory Distress Skin: Other (laceration) Location, Skin: Upper Extremity, Right Characteristics: Other (2.5 cm flap laceration atop MP of 2nd digit of right hand. CMS distal to injury intact. no insult to joint capsal ) ED SKIN PROCEDURES - Laceration/Wound Repair Right Posterior Medial Hand Lac/Wound length In cm: 2.5 Appearance: Superficial Distal NVT: Neuro & Vascular Intact Anesthetic Type: Local Local Anesthesia - Lidocaine (Xylocaine): 1% with EPI Local Anesthetic Volume: 2cc Skin Prep: Chlorhexidine (Hibiciens), Saline, Sterile Drape Exploration/Debridement/Repair: Wound Explored, In a Bloodless Field, Explored to Base, Minimal Debridement, No Foreign Material Found Suture Size: 4-0 # of Sutures: 8 Suture Type: Nylon, Interrupted, Simple Drain Placement: No Sterile Dressing Applied: Nurse Tetanus Status Addressed: Yes Complications: No Course - Vital Signs Last Recorded V/S: Last Vital Signs Temp 36.2 C 03/14/19 15:19 Pulse 104 H 03/14/19 15:19 Resp 14 03/14/19 15:19 BP 154/92 H 03/14/19 15:19 Pulse Ox - Orders/Labs/Meds Meds: Medications Discontinued Medications Generic Name Dose Route Start Last Admin Trade Name Freq PRN Reason Stop Dose Admin Bacitracin 1 dose 03/14/19 15:40 03/14/19 15:45 Bacitracin Oint 1 Gm TOP 03/14/19 15:41 1 dose ONETIME ONE Administration Lidocaine/Epinephrine 3 ml 03/14/19 15:40 03/14/19 15:45 Xylocaine 1% With Epinephrine 1:100,000 INFILT 03/14/19 15:41 3 ml ONETIME ONE Administration Departure - Departure Time of Disposition: 16:15 Disposition: Home, Self-Care 01 Condition: Good Clinical Impression: Laceration of finger Qualifiers: Encounter type: initial encounter Finger: index finger Damage to nail status: without damage Foreign body presence: without foreign body Laterality: right Qualified Code(s): S61.210A - Laceration without foreign body of right index finger without damage to nail, initial encounter - Discharge Information *PRESCRIPTION DRUG MONITORING PROGRAM REVIEWED*: Not Applicable *COPY OF PRESCRIPTION DRUG MONITORING REPORT IN PATIENT JUSTIN: Not Applicable Instructions: Sutured Wound Care, [id number] Referrals: Romeo Parker MD [Primary Care Provider] - Forms: ED Department Discharge Additional Instructions: sutures out in 7 days ice as much as possible today tylenol 650-1000 mg every 6 hours for pain observe fro signs of infection - fire engine red, increase in pain, purulent drainage
== END 2019-03-14 16:35 | disposition home or self-care (01) ==
LOC: JP.ED 15:10
DX: S61.210A Laceration without foreign body of right index finger without damage to nail, initial encounter (principal); E03.9 Hypothyroidism, unspecified; Z79.82 Long term (current) use of aspirin; Z79.899 Other long term (current) drug therapy; W25.XXXA Contact with sharp glass, initial encounter; Y93.G1 Activity, food preparation and clean up
CPT/HCPCS: 12001; 99282

== ENCOUNTER 2021-08-31 16:00 | Emergency (ER) | payer MEDICARE ==
[2021-08-31 16:57] VITALS: BP 139/86; PULSE 84
--- NOTE | 2021-08-31 18:57 | EDM.PDOC ---
ED HPI GENERAL MEDICAL PROBLEM - General Chief Complaint: Gastrointestinal Problem Stated Complaint: BLEEDING FROM RECTUM Time Seen by Provider: 08/31/21 17:30 Source of Information: Reports: Patient History Limitations: Reports: No Limitations - History of Present Illness INITIAL COMMENTS - FREE TEXT/NARRATIVE: 66-year-old female arrives to the emergency room with several episodes of rectal bleeding over the past 12 hours. She has known colonic polyps, had a rectal bleed 3 years ago with a colonoscopy and is scheduled for another colonoscopy in 1 month. Over the past 12 hours she has had some pressure buildup in her lower abdomen followed by some rectal bleeding. She has a picture of the bloody stool. She has mild cramping but no significant pain, she felt lightheadedness after this last episode so that she should be checked. No nausea or vomiting, no chest pain, no shortness of breath. She has been waiting in the emergency room for over 1 hour to be seen, she has not had rectal bleeding while in the ER. Onset: Sudden (Started suddenly at 3 AM) Duration: Hour(s): (Just over 12 hours) Associated Symptoms: Reports: Weakness, Other (Brief lightheadedness after her last bowel movement) - Related Data Allergies Allergy/AdvReac Type Severity Reaction Status Date / Time ceftriaxone [From Rocephin] Allergy Rash Verified 08/31/21 16:07 doxycycline Allergy Hives Verified 08/31/21 16:07 Home Meds: Home Meds Lisinopril 40 mg PO DAILY 01/05/17 [History] Terazosin [Hytrin] 5 mg PO DAILY 01/05/17 [History] Levothyroxine Sodium [Synthroid] 100 mcg PO DAILY 07/20/17 [History] Metoprolol Succinate [Toprol XL 50mg] 50 mg PO DAILY 10/29/17 [History] Cholecalciferol (Vitamin D3) [Vitamin D3] 2,000 units PO DAILY 11/25/17 [History] Sertraline HCl 50 mg PO DAILY 10/05/18 [History] Aspirin [Lo-Dose Aspirin EC] 81 mg PO DAILY 12/14/18 [History] LORazepam 0.5 mg PO DAILY PRN 12/14/18 [History] Past Medical History HEENT History: Reports: Allergic Rhinitis Cardiovascular History: Reports: Blood Clots/VTE/DVT, Hypertension Respiratory History: Reports: Bronchitis, Recurrent, Pneumonia, Recurrent Other Respiratory History: "walking pneumonia yearly" Gastrointestinal History: Reports: Colon Polyp Genitourinary History: Reports: Renal Calculus [employer]OR [employer] History: Reports: Endometriosis, Musculoskeletal History: Reports: Other (See Below) Other Musculoskeletal History: L knee pain. left shoulder pain Neurological History: Reports: Head Trauma, TIA, Vertigo Psychiatric History: Reports: Anxiety Endocrine/Metabolic History: Reports: Hypothyroidism Hematologic History: Reports: None Immunologic History: Reports: None Oncologic (Cancer) History: Reports: Other (See Below) Other Oncologic History: melanoma skin Dermatologic History: Reports: Melanoma - Infectious Disease History Infectious Disease History: Reports: Chicken Pox, Measles, Mumps - Past Surgical History Head Surgeries/Procedures: Reports: None HEENT Surgical History: Reports: Oral Surgery Cardiovascular Surgical History: Reports: None Respiratory Surgical History: Reports: None GI Surgical History: Reports: Appendectomy, Colonoscopy, Hernia, Abdominal, Hernia Repair/Other Female Surgical History: Reports: Hysterectomy, Oophorectomy Other Female Surgeries/Procedures: still has right overy Endocrine Surgical History: Reports: Thyroidectomy Neurological Surgical History: Reports: None Musculoskeletal Surgical History: Reports: Arthroscopic Knee, Knee Replacement Other Musculoskeletal Surgeries/Procedures:: right arthroscopy of knee, cortisone injections of both knees. s/p RTKA 01/26/18 Dermatological Surgical History: Reports: Other (See Below) Social & Family History - Family History Family Medical History: No Pertinent Family History Oncologic: Reports: Metastatic, Other (See Below) Other Oncologic Family History: father of malignant melanoma - Tobacco Use Tobacco Use Status *Q: Current Every Day Tobacco User Years of Tobacco use: 50 Packs/Tins Daily: 0.2 - Caffeine Use Caffeine Use: Reports: Soda Other Caffeine Use: lots of coffee - Recreational Drug Use Recreational Drug Use: No ED ROS GENERAL - Review of Systems Review Of Systems: See Below Constitutional: Reports: Malaise. Denies: Fever, Chills HEENT: Reports: No Symptoms Respiratory: Reports: No Symptoms Cardiovascular: Reports: No Symptoms GI/Abdominal: Reports: Abdominal Pain (Lower abdominal pressure, discomfort waxes and wanes) : Reports: No Symptoms Skin: Reports: No Symptoms Neurological: Reports: Dizziness, Weakness Psychiatric: Reports: Anxiety ED EXAM, GENERAL - Physical Exam Exam: See Below Exam Limited By: No Limitations General Appearance: Alert, No Apparent Distress Eye Exam: Bilateral Eye: Normal Inspection Respiratory/Chest: No Respiratory Distress, Lungs Clear Cardiovascular: Regular Rate, Rhythm. No: Tachycardia GI/Abdominal: Normal Bowel Sounds, Soft, Tender (Some mild discomfort to palpation in the lower abdomen especially the left lower quadrant but no guarding, no rebound) Rectal (Female) Exam: Normal Exam, Other (No external rectal masses, no significant pain on digital exam in the stool is light green. No rectal impaction) Extremities: Normal Inspection Neurological: Alert, Oriented Psychiatric: Normal Affect, Normal Mood Course - Vital Signs Last Recorded V/S: Last Vital Signs Temp 98.0 F 08/31/21 17:16 Pulse 84 08/31/21 17:16 Resp 16 08/31/21 17:16 BP 139/86 08/31/21 17:16 Pulse Ox 94 L 08/31/21 17:16 - Orders/Labs/Meds Labs: Laboratory Tests 08/31/21 08/31/21 Range/Units 17:57 17:57 WBC 9.4 (4.5-11.0) K/uL RBC 5.47 (3.30-5.50) M/uL Hgb 15.6 H D (12.0-15.0) g/dL Hct 47.3 (36.0-48.0) % MCV 87 (80-98) fL MCH 29 (27-31) pg MCHC 33 (32-36) % Plt Count 229 (150-400) K/uL Neut % (Auto) 62.1 (36-66) % Lymph % (Auto) 25.9 (24-44) % [place] % (Auto) 8.5 H (2-6) % Eos % (Auto) 3.1 (2-4) % Baso % (Auto) 0.4 (0-1) % Sodium 139 L (140-148) mmol/L Potassium 4.4 (3.6-5.2) mmol/L Chloride 103 (100-108) mmol/L Carbon Dioxide 28 (21-32) mmol/L Anion Gap 12.4 (5.0-14.0) mmol/L BUN 16 (7-18) mg/dL Creatinine 0.8 (0.6-1.0) mg/dL Est Cr Clr Drug Dosing 49.01 mL/min Estimated GFR (MDRD) > 60 (>60) Glucose 98 (74-106) mg/dL Calcium 9.3 D (8.5-10.1) mg/dL - Re-Assessments/Exams Free Text/Narrative Re-Assessment/Exam: 08/31/21 18:56 Stool Hemoccult is surprisingly negative, all her labs are normal in fact hemoglobin is slightly elevated. I encouraged her to just watch this for the next day or 2, if she still has persistent heavy bleeding she can be rechecked at any time. Otherwise she should call her primary on Thursday to set up a colonoscopy as soon as possible. With the stool being guaiac negative, and obvious rectal bleeding earlier this is most likely a hemorrhoid near the rectal opening. Departure - Departure Time of Disposition: 19:15 Disposition: Home, Self-Care Clinical Impression: Rectal bleed - Discharge Information Instructions: Rectal Bleeding Referrals: Romeo Parker MD [Primary Care Provider] - Forms: ED Department Discharge Care Plan Goals: Return anytime if bleeding is persistent, heavy, or you develop other concerns such as increased pain. Otherwise recheck with your primary providers next week to discuss the colonoscopy date and possibly a hemoglobin recheck. Sepsis Event Note (ED) - Focused Exam Vital Signs: Vital Signs Temp Pulse Resp BP Pulse Ox 08/31/21 17:16 98.0 F 84 16 139/86 94 L 08/31/21 16:56 98.0 F 84 16 139/86 94 L
== END 2021-08-31 19:05 | disposition home or self-care (01) ==
LOC: JP.ED 16:00
DX: K62.5 Hemorrhage of anus and rectum (principal); I10 Essential (primary) hypertension; E03.9 Hypothyroidism, unspecified; Z72.0 Tobacco use; Z86.73 Personal history of transient ischemic attack (TIA), and cerebral infarction without residual deficits; Z88.1 Allergy status to other antibiotic agents; Z79.82 Long term (current) use of aspirin; Z79.899 Other long term (current) drug therapy
CPT/HCPCS: 36415; 80048; 82272; 85025; 99283

== ENCOUNTER 2021-10-24 06:31 | Day surgery (SDC) | payer MEDICARE ==
[2021-10-24] MEDS ORDERED: Sodium Chloride 0.9% 1,000 ML IV SCH (07:00)
[2021-10-24 07:21] LABS: CORONAVIRUS COVID-19 NAA NEGATIVE (NEGATIVE)
[2021-10-24] MEDS ORDERED: fentaNYL 100 MCG/2 ML SDV ONE (07:27)
[2021-10-24] MEDS ORDERED: Propofol 200 MG/20 ML SDV ONE (07:27)
[2021-10-24] MEDS ORDERED: Midazolam 1 MG/ML 2 ML SDV ONE (07:27)
[2021-10-24 09:41] VITALS: BP 95/67; PULSE 77
== END 2021-10-24 09:41 | disposition home or self-care (01) ==
LOC: JP.SDS 06:31
PROVIDERS: ATTEND Surgery
DX: D12.2 Benign neoplasm of ascending colon (principal); D12.4 Benign neoplasm of descending colon; K62.1 Rectal polyp; I10 Essential (primary) hypertension; E03.9 Hypothyroidism, unspecified; F17.200 Nicotine dependence, unspecified, uncomplicated; Z01.812 Encounter for preprocedural laboratory examination; Z20.822 Contact with and (suspected) exposure to COVID-19
CPT/HCPCS: 0241U; 88305; J2250; J2704; J3010; J7030

== ENCOUNTER 2022-05-08 08:20 | Day surgery (SDC) | payer MEDICARE ==
[2022-05-08] MEDS ORDERED: fentaNYL 100 MCG/2 ML SDV ONE (08:50)
[2022-05-08] MEDS ORDERED: Propofol 200 MG/20 ML SDV ONE (08:50)
[2022-05-08] MEDS ORDERED: Midazolam 1 MG/ML 2 ML SDV ONE (08:50)
[2022-05-08] MEDS ORDERED: Sodium Chloride 0.9% 1,000 ML IV SCH (09:00)
[2022-05-08 11:02] VITALS: BP 126/72; PULSE 74
== END 2022-05-08 11:16 | disposition home or self-care (01) ==
LOC: JP.SDS 08:20
PROVIDERS: ATTEND Surgery
DX: Z12.11 Encounter for screening for malignant neoplasm of colon (principal); D12.3 Benign neoplasm of transverse colon; K62.1 Rectal polyp; K57.30 Diverticulosis of large intestine without perforation or abscess without bleeding; F17.200 Nicotine dependence, unspecified, uncomplicated; I10 Essential (primary) hypertension; F41.9 Anxiety disorder, unspecified; Z86.010 Personal history of colon polyps
CPT/HCPCS: 45380; 45385; J2250; J2704; J3010; J7030; 88305

== ENCOUNTER 2023-06-15 09:41 | Inpatient (IN) | payer MEDICARE ==
[~2023-06-15 09:41] MED LIST changes: -Midazolam 1 MG/ML 2 ML SDV ONE; -Propofol 200 MG/20 ML SDV ONE; +Tranexamic Acid 800 MG in Sodium Chloride 0.9% 50 ML IV ONE; -fentaNYL 100 MCG/2 ML SDV ONE
[2023-06-15 10:12] LABS: HEMOGLOBIN 15.3 g/dL (11.2-15.5); MEAN CORPUSCULAR HEMOGLOBIN 28.8 pg (31.6-35.5); MEAN CORPUSCULAR HGB CONC 33.3 g/dL (31.6-35.5); MEAN CORPUSCULAR VOLUME 86.5 fL (81.4-99.0); RED BLOOD CELL COUNT 5.32 M/uL (3.77-5.24); WHITE BLOOD CELL COUNT,WBC 9.4 K/uL (3.2-11.0)
[2023-06-15] MEDS ORDERED: Lactated Ringers 1,000 ML IV SCH (10:15)
[2023-06-15 10:31] LABS: ALANINE AMINOTRANSFERASE,ALT 15 U/L (12-78); ALBUMIN 3.5 g/dL (3.4-5.0); ALKALINE PHOSPHATASE 94 U/L (46-116); ASPARTATE AMNIOTRANSFERASE,AST 18 U/L (15-37); BILIRUBIN TOTAL 0.5 mg/dL (0.2-1.0); BLOOD UREA NITROGEN,BUN 15 mg/dL (7-18); CALCIUM 8.3 mg/dL (8.5-10.1); CARBON DIOXIDE,CO2 24 mmol/L (21-32); CHLORIDE,CL 105 mmol/L (100-108); CREATININE 0.7 mg/dL (0.6-1.0); EST CRCL DRUG DOSING (CG) 55.25 mL/min; ESTIMATED GFR 94 mL/min (>60); GLUCOSE RANDOM 102 mg/dL (74-106); POTASSIUM,K 4.4 mmol/L (3.6-5.2); PROTEIN TOTAL,TP 7.2 g/dL (6.4-8.2); SODIUM,NA 138 mmol/L (140-148)
[2023-06-15 10:36] LABS: ANION GAP 13.4 mmol/L (5.0-14.0)
[2023-06-15] MEDS: Nozin Nasal Sanitizer NASBOTH SCH ×2 (10:46→20:07)
[2023-06-15] MEDS ORDERED: Tranexamic Acid 800 MG in Sodium Chloride 0.9% 50 ML IV ONE (11:00)
[2023-06-15] MEDS ORDERED: Tranexamic Acid 860 MG in Sodium Chloride 0.9% 50 ML IV ONE (11:00)
[2023-06-15] MEDS ORDERED: fentaNYL 100 MCG/2 ML SDV ONE ×2 (11:01→14:22)
[2023-06-15] MEDS ORDERED: Propofol 200 MG/20 ML SDV ONE ×3 (11:01→15:22)
[2023-06-15] MEDS ORDERED: Midazolam 1 MG/ML 2 ML SDV ONE ×2 (11:01→14:22)
[2023-06-15] MEDS ORDERED: Docusate Sodium 100 MG Cap PO PRN (11:25)
[2023-06-15] MEDS ORDERED: Morphine 2 MG/ML SYRINGE IVPUSH PRN (11:25)
[2023-06-15] MEDS ORDERED: Ondansetron 4 MG/2 ML SDV IVPUSH PRN (11:25)
[2023-06-15] MEDS ORDERED: Magnesium Hydroxide 400 MG/5 ML Susp 30 ML Cup PO PRN (11:25)
[2023-06-15] MEDS ORDERED: Nystatin Topical Powder 15 GM Bottle TOP PRN (11:29)
[2023-06-15] MEDS ORDERED: Triamcinolone Acetonide 0.1% Crm 15 GM Tube TOP PRN (11:29)
[2023-06-15] MEDS ORDERED: traZODone 50 MG Tab PO PRN (11:29)
[2023-06-15] MEDS ORDERED: TACROLIMUS TOP PRN (11:29)
[2023-06-15] MEDS ORDERED: ceFAZolin 2 GM in Sodium Chloride 0.9% 100 ML IV SCH (11:30)
[2023-06-15] MEDS ORDERED: Bupivacaine 0.5% 50 ML MDV ONE (12:34)
[2023-06-15] MEDS ORDERED: Lactated Ringers 1,000 ML ONE (13:58)
[2023-06-15] MEDS ORDERED: Sodium Chloride 0.9% 10 ML ONE (14:31)
[2023-06-15] MEDS ORDERED: ePHEDrine 50 MG/ML SDV ONE (14:31)
[2023-06-15] MEDS ORDERED: Sodium Chloride 0.9% 1,000 ML IV SCH (16:30)
[2023-06-15] MEDS: Acetaminophen 325 MG Tab PO SCH (17:23)
[2023-06-15] MEDS: oxyCODONE 5 MG Tab PO PRN (17:24)
[2023-06-15] MEDS ORDERED: Ketorolac 30 MG/ML SDV IVPUSH PRN ×2 (18:00)
[2023-06-15] MEDS ORDERED: Ketorolac 15 MG/ML SDV IVPUSH PRN (18:00)
[2023-06-15] MEDS: VARENICLINE 1 MG PO SCH (20:08)
[2023-06-15] MEDS: Terazosin 5 MG Cap PO SCH (20:08)
[2023-06-15] MEDS: Sertraline 50 MG Tab PO SCH (20:10)
[2023-06-15] MEDS ORDERED: Nozin Nasal Sanitizer NASBOTH SCH (21:00)
[2023-06-15] MEDS: tiZANidine 2 MG Tab PO PRN (22:29)
[2023-06-16] MEDS: Acetaminophen 325 MG Tab PO SCH ×5 (01:16→23:10)
[2023-06-16] MEDS: oxyCODONE 5 MG Tab PO PRN ×4 (04:33→23:09)
[2023-06-16 05:53] LABS: BASOPHILS PERCENT AUTO 0.1 % (0.1-1.3); EOSINOPHILS ABSOLUTE AUTO 0.03 K/uL (0.00-0.40); EOSINOPHILS PERCENT AUTO 0.3 % (0.0-5.4); HEMATOCRIT 36.7 % (34.3-46.0); HEMOGLOBIN 12.2 g/dL (11.2-15.5); IMMATURE GRAN ABSOLUTE AUTO 0.05 K/uL (0.00-0.23); IMMATURE GRAN PERCENT AUTO 0.5 % (0.0-0.7); LYMPHOCYTES ABSOLUTE AUTO 1.08 K/uL (0.8-3.3); LYMPHOCYTES PERCENT AUTO 10.3 % (11.4-47.7); MEAN CORPUSCULAR HEMOGLOBIN 29.2 pg (31.6-35.5); MEAN CORPUSCULAR HGB CONC 33.2 g/dL (31.6-35.5); MEAN CORPUSCULAR VOLUME 87.8 fL (81.4-99.0); MONOCYTES ABSOLUTE AUTO 0.96 K/uL (0.20-0.90); MONOCYTES PERCENT AUTO 9.2 % (3.3-12.6); NEUTROPHILS ABSOLUTE AUTO 8.36 K/uL (1.0-7.6); NEUTROPHILS PERCENT AUTO 79.6 % (40.0-78.1); PLATELET COUNT,PLT 157 K/uL (130-375); RED BLOOD CELL COUNT 4.18 M/uL (3.77-5.24); WHITE BLOOD CELL COUNT,WBC 10.5 K/uL (3.2-11.0)
[2023-06-16 05:56] LABS: BASOPHILS ABSOLUTE AUTO 0.01 K/uL (0.00-0.10)
[2023-06-16] MEDS: tiZANidine 2 MG Tab PO PRN ×2 (08:31→16:11)
[2023-06-16] MEDS: Nozin Nasal Sanitizer NASBOTH SCH ×2 (08:31→20:09)
[2023-06-16] MEDS: Levothyroxine 100 MCG Tab PO SCH (08:31)
[2023-06-16] MEDS: Aspirin 325 MG Tab.EC PO SCH ×2 (08:32→20:11)
[2023-06-16] MEDS: VARENICLINE 1 MG PO SCH ×2 (08:32→20:10)
[2023-06-16] MEDS: Rosuvastatin 5 MG Tab PO SCH (08:33)
[2023-06-16] MEDS: Terazosin 5 MG Cap PO SCH ×2 (08:33→20:12)
[2023-06-16] MEDS: Metoprolol Succinate 50 MG Tab.ER PO SCH (08:49)
[2023-06-16] MEDS ORDERED: Lisinopril 20 MG Tab PO SCH ×2 (09:00→21:00)
[2023-06-16] MEDS: Sertraline 50 MG Tab PO SCH (20:12)
[2023-06-17] MEDS: tiZANidine 2 MG Tab PO PRN ×3 (01:34→11:38)
[2023-06-17] MEDS: Acetaminophen 325 MG Tab PO SCH ×4 (05:44→18:38)
[2023-06-17] MEDS: oxyCODONE 5 MG Tab PO PRN ×2 (07:33→16:06)
[2023-06-17] MEDS: Levothyroxine 100 MCG Tab PO SCH (07:34)
[2023-06-17] MEDS: VARENICLINE 1 MG PO SCH (08:25)
[2023-06-17] MEDS: Nozin Nasal Sanitizer NASBOTH SCH (08:25)
[2023-06-17] MEDS: Rosuvastatin 5 MG Tab PO SCH (08:26)
[2023-06-17] MEDS: Aspirin 325 MG Tab.EC PO SCH (08:26)
[2023-06-17] MEDS: Terazosin 5 MG Cap PO SCH (08:26)
[2023-06-17] MEDS: Metoprolol Succinate 50 MG Tab.ER PO SCH (08:26)
[2023-06-17 11:37] VITALS: BP 150/67; PULSE 74
== END 2023-06-17 19:15 | disposition home or self-care (01) | DRG 465 ==
LOC: JP.SDS 09:41 → JP.MS 11:25 → JP.SDS 06-16 09:53
PROVIDERS: ADMIT Specialist; ATTEND Specialist
PROC: 0SRC0N9 Replacement of Right Knee Joint with Patellofemoral Synthetic Substitute, Cemented, Open Approach (ICD-10-PCS; 2023-06-15)
PROC: 0SPC0NZ Removal of Patellofemoral Synthetic Substitute from Right Knee Joint, Open Approach (ICD-10-PCS; principal; 2023-06-15 10:45)
DX: T84.53XA Infection and inflammatory reaction due to internal right knee prosthesis, initial encounter (principal); I10 Essential (primary) hypertension; E89.0 Postprocedural hypothyroidism; E66.9 Obesity, unspecified; F41.9 Anxiety disorder, unspecified; E55.9 Vitamin D deficiency, unspecified; K21.9 Gastro-esophageal reflux disease without esophagitis; F17.210 Nicotine dependence, cigarettes, uncomplicated; Z86.718 Personal history of other venous thrombosis and embolism; Z79.899 Other long term (current) drug therapy; Z98.890 Other specified postprocedural states; Z68.36 Body mass index [BMI] 36.0-36.9, adult; Z88.8 Allergy status to other drugs, medicaments and biological substances; Z88.1 Allergy status to other antibiotic agents; Z86.73 Personal history of transient ischemic attack (TIA), and cerebral infarction without residual deficits
CPT/HCPCS: 36415 ×2; 73560 ×2; 80053; 85025; 85027; 87070; 87075; 87205; A9270 ×19; C1713; C1776 ×6; J1885; J2250 ×2; J2270; J2405; J2704 ×3; J3010 ×2; J3370 ×2; J3490 ×2; J7030; J7050 ×2; J7120 ×2; 97110-GP; 97116-GP; 97161-GP

== ENCOUNTER 2023-12-13 23:57 | Emergency (ER) | payer MEDICARE ==
[2023-12-14 00:43] LABS: BASOPHILS ABSOLUTE AUTO 0.04 K/uL (0.00-0.10); BASOPHILS PERCENT AUTO 0.6 % (0.1-1.3); EOSINOPHILS ABSOLUTE AUTO 0.16 K/uL (0.00-0.40); EOSINOPHILS PERCENT AUTO 2.5 % (0.0-5.4); HEMOGLOBIN 13.9 g/dL (11.2-15.5); IMMATURE GRAN ABSOLUTE AUTO 0.03 K/uL (0.00-0.23); IMMATURE GRAN PERCENT AUTO 0.5 % (0.0-0.7); LYMPHOCYTES PERCENT AUTO 28.2 % (11.4-47.7); MEAN CORPUSCULAR HEMOGLOBIN 28.8 pg (31.6-35.5); MEAN CORPUSCULAR HGB CONC 33.9 g/dL (31.6-35.5); MEAN CORPUSCULAR VOLUME 84.9 fL (81.4-99.0); MONOCYTES ABSOLUTE AUTO 0.47 K/uL (0.20-0.90); MONOCYTES PERCENT AUTO 7.4 % (3.3-12.6); NEUTROPHILS ABSOLUTE AUTO 3.88 K/uL (1.0-7.6); NEUTROPHILS PERCENT AUTO 60.8 % (40.0-78.1); PLATELET COUNT,PLT 196 K/uL (130-375); RED BLOOD CELL COUNT 4.83 M/uL (3.77-5.24); WHITE BLOOD CELL COUNT,WBC 6.4 K/uL (3.2-11.0)
[2023-12-14 00:55] LABS: A/G RATIO 0.8 (1.2-2.2); ALANINE AMINOTRANSFERASE,ALT 24 U/L (12-78); ALBUMIN 3.2 g/dL (3.4-5.0); ALKALINE PHOSPHATASE 104 U/L (46-116); ANION GAP 9.2 mmol/L (5.0-14.0); ASPARTATE AMNIOTRANSFERASE,AST 15 U/L (15-37); BILIRUBIN TOTAL 0.4 mg/dL (0.2-1.0); BLOOD UREA NITROGEN,BUN 18 mg/dL (7-18); C-REACTIVE PROTEIN 1.14 mg/dL (<0.50); CALCIUM 8.7 mg/dL (8.5-10.1); CARBON DIOXIDE,CO2 27 mmol/L (21-32); CHLORIDE,CL 104 mmol/L (100-108); CREATININE 0.8 mg/dL (0.6-1.0); EST CRCL DRUG DOSING (CG) 47.67 mL/min; ESTIMATED GFR 80 mL/min (>60); GLUCOSE RANDOM 155 mg/dL (74-106); POTASSIUM,K 3.6 mmol/L (3.6-5.2); PROTEIN TOTAL,TP 7.2 g/dL (6.4-8.2); SODIUM,NA 140 mmol/L (140-148); TROPONIN I HIGH SENSITIVITY 4.3 pg/mL (<=60.3)
[2023-12-14] MEDS: Sodium Chloride 0.9% 1,000 ML IV ONE (01:00)
[2023-12-14] MEDS: Iopamidol 755 Mg/ML 100 ML Bottle IV SCH (01:59)
[2023-12-14] MEDS: Sodium Chloride 0.9% 100 ML IV SCH (01:59)
[2023-12-14] MEDS: Sodium Chloride 0.9% 10 ML Syringe FLUSH ONE (01:59)
[2023-12-14 02:12] VITALS: BP 187/82; PULSE 71
== END 2023-12-14 04:07 | disposition home or self-care (01) ==
LOC: JP.ED 23:57
DX: J44.9 Chronic obstructive pulmonary disease, unspecified (principal); J70.0 Acute pulmonary manifestations due to radiation; I10 Essential (primary) hypertension; E03.9 Hypothyroidism, unspecified; E66.9 Obesity, unspecified; Z88.1 Allergy status to other antibiotic agents; Z79.899 Other long term (current) drug therapy; Z86.19 Personal history of other infectious and parasitic diseases; Z87.891 Personal history of nicotine dependence; Z68.41 Body mass index [BMI] 40.0-44.9, adult
CPT/HCPCS: 36415; 71275; 80053; 84484; 85025; 85379; 86140; 96360; 96361; 99285; J3490; J7030; Q9967

== ENCOUNTER 2024-07-20 06:23 | Day surgery (SDC) | payer MEDICARE ==
[2024-07-20] MEDS: Lactated Ringers 1,000 ML IV SCH (06:30)
[2024-07-20] MEDS ORDERED: fentaNYL 100 MCG/2 ML SDV ONE (07:24)
[2024-07-20] MEDS ORDERED: Propofol 200 MG/20 ML SDV ONE (07:24)
[2024-07-20 08:52] VITALS: BP 138/65; PULSE 69
== END 2024-07-20 09:20 | disposition home or self-care (01) ==
LOC: JP.SDS 06:23
PROVIDERS: ATTEND Surgery
DX: Z12.11 Encounter for screening for malignant neoplasm of colon (principal); D12.3 Benign neoplasm of transverse colon; K63.5 Polyp of colon; K57.30 Diverticulosis of large intestine without perforation or abscess without bleeding; I10 Essential (primary) hypertension; F41.9 Anxiety disorder, unspecified
CPT/HCPCS: 00811-QZ; 88305; J2704; J3010; J7120